=== PATIENT | male | born 1955 | race Caucasian/White ===

== ENCOUNTER 2023-07-30 19:51 | Observation (INO) | payer MEDICARE, MEDICAID, SELFPAY ==
[2023-07-30] VITALS (8 sets, daily range): BP systolic 170–190; BP diastolic 98–116; PULSE 92–109; RESP 14–23; TEMP 36.8–36.9; O2SAT 96–98
--- NOTE | 2023-07-30 20:07 | EKG12_ITS ---
Test Reason : CP Blood Pressure : / mmHG Vent. Rate : 118 BPM Atrial Rate : 118 BPM P-R Int : 138 ms QRS Dur : 090 ms QT Int : 324 ms P-R-T Axes : 048 063 084 degrees QTc Int : 454 ms Sinus tachycardia Nonspecific ST abnormality Abnormal ECG Confirmed by AZAR FROST, MOI ([id number]), publishing editor MATTHEW ESTRADA ([id number]) on 08/04/2023 11:33:20 AM Referred By: Robert Delong Confirmed By:MAISHA ASKEW MD
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
[2023-07-30] MEDS: Aspirin 81 MG TAB.CHEW 324 MG PO (20:18)
[2023-07-30 20:35] LABS: Absolute Lymphocyte Count 1.02 X10^3/uL (0.83-4.51); Absolute Neutrophil Count 2.1 X10^3/uL (2.0-7.7); Basophil# 0.03 X10^3/uL; Basophil% 0.8 % (0-1); Eosinophil# 0.11 X10^3/uL; Eosinophils% 2.8 % (0-5); Hematocrit 37.2 % (40-54); Hemoglobin 12.7 g/dL (13.0-16.5); Lymphocyte # 1.02 X10^3/ul (0.83-4.51); Lymphocyte % 26.4 % (19-41); Mean Corp Hgb Conc 34.1 g/dL (32-36); Mean Corpuscular Hgb 30.4 pg (27.0-32.0); Mean Platelet Vol. 9.8 fl (6.2-12.0); Monocyte# 0.61 X10^3/uL; Monocyte% 15.8 % (0-10); NRBC Flagged by Analyzer 0 % (0-5); Neutrophil # 2.08 X10^3/uL (2.7-7.7); Neutrophil % 53.9 % (47-70); Platelet Count 142 K/mm3 (150-450); RBC Distribution Width CV 12.9 % (11.6-14.6); RBC Distribution Width SD 41.8 fl (35.1-43.9); Red Blood Count 4.18 M/mm3 (4.6-6.2); White Blood Count 3.9 K/mm3 (4.4-11.0)
[2023-07-30] MEDS: 0.9% Normal Saline (1000mL) 1,000 ML 150 ML IV (20:35)
--- NOTE | 2023-07-30 20:40 | RAD_ITS ---
STUDY: X-RAY CHEST REASON FOR EXAM: Male, 68 years old. Chest pain TECHNIQUE: AP portable view of the chest. COMPARISON: None. FINDINGS: The lungs are clear and expanded. There is no demonstrated pleural abnormality. Sternal cerclage wires are present from a prior sternotomy. Normal mediastinum and don. Normal visualized pulmonary arteries. There is atherosclerotic calcification of the aortic arch with tortuosity. Normal visualized thoracic spine. There is healed left clavicle fracture. There is no demonstrated abnormality of the visualized soft tissue structures of the upper abdomen. RAD/Chest 1 View (Portable) IMPRESSION: Degenerative and postoperative changes, as described above. No demonstrated acute cardiopulmonary process. Electronically Signed: Sal Orellana MD at 21:58 EDT ,
[2023-07-30 20:54] LABS: Anion Gap 3 (5-15); BUN 19 mg/dL (7-18); BUN/Creat Ratio 17.4 RATIO (10-20); Calcium,Total 9.3 mg/dL (8.5-10.1); Chloride 109 mmol/L (98-107); Creatinine, Serum 1.09 mg/dL (0.70-1.30); EST Glomerular Filtration Rate 72 mL/min (>60); Est Glom Filt Rate - Afr Amer 87 mL/min (>60); Glucose 143 mg/dL (74-106); Potassium 3.9 mmol/L (3.5-5.1); Sodium Level 141 mmol/L (136-145); Troponin-I HS (w/2H Reflex) 29 pg/mL (3.0-78.0)
[2023-07-30 21:12] LABS: Bedside Glucose 122 mg/dL (74-106)
[2023-07-30 22:32] LABS: Reflex Troponin-HS? (from REC) Y
[2023-07-30 23:08] LABS: Troponin-I HS 97 pg/mL (3.0-78.0)
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
[2023-07-30] MEDS: Metoprolol Tartrate 5 MG/5 ML Vial IV (23:36)
[2023-07-30] MEDS: Nitroglycerin Oint 1 INCH PACKET TD (23:39)
[2023-07-30 23:56] LABS: Thyroid Stim Hormone (TSH) 1.65 uIU/mL (0.358-3.74)
[2023-07-31] VITALS (11 sets, daily range): BP systolic 168–212; BP diastolic 100–124; PULSE 83–100; RESP 16–20; TEMP 36.6–36.8; O2SAT 92–98; BMI 23.4
[2023-07-31] MEDS: Metoprolol Tartrate 5 MG/5 ML Vial IV (00:04)
[2023-07-31] MEDS: Enoxaparin 60 MG/0.6 ML Syringe SC (00:07)
--- NOTE | 2023-07-31 00:51 | ECHOD_ITS ---
Reason For Study: S/P CABG Procedure This was a 2D Doppler, Color Flow transthoracic echocardiogram. Exam performed portable in patient room. Left Ventricle Normal LV size. Concentric left ventricular hypertrophy. The estimated ejection fraction is 55 %. Diastolic function is indeterminate. No regional wall motion abnormalities noted. Right Ventricle Normal RV size. Normal systolic function. Atria Normal left atrium. Normal right atrium. No doppler evidence for ASD. Mitral Valve There is no mitral valve stenosis. Trivial mitral valve insufficiency. Tricuspid Valve There is no tricuspid stenosis. Trivial tricuspid valve insufficiency. Pulmonary artery systolic pressure is 25 mmHg. Aortic Valve Trisinus/trileaflet aortic valve. There is no aortic stenosis. No aortic valve insufficiency. Pulmonic Valve There is no pulmonic valvular stenosis. No pulmonic valve insufficiency. Great Vessels Normal aortic root. Pericardium/Pleural No pericardial effusion. MMode/2D Measurements & Calculations LVIDd: 3.9 cm IVSd: 1.8 cm Ao root diam: 3.5 cm LVIDs: 2.8 cm LVPWd: 1.5 cm RVDd: 3.3 cm FS: 27.6 % LAV(MOD-bp): 54.1 ml EDV(MOD-sp4): 108.7 ml EDV(MOD-sp2): 101.7 ml LAV(MOD-bp) Indexed: 30.7 ml/m2 ESV(MOD-sp4): 50.5 ml ESV(MOD-sp2): 40.3 ml LAV(MOD-sp2): 64.4 ml EF(MOD-sp4): 53.5 % EF(MOD-sp2): 60.3 % LAV(MOD-sp4): 41.1 ml SV(MOD-sp4): 58.2 ml SV(MOD-sp2): 61.4 ml LA A4 area: 15.8 cm2 LA dimension(2D): 4.4 cm RA A4 area: 16.6 cm2 Time Measurements MV dec time: 0.20 sec Doppler Measurements & Calculations MV E max mukesh: 84.4 cm/sec Lat Peak E' Mukesh: 7.2 cm/sec Med Peak E' Mukesh: 4.5 cm/sec MV A max mukesh: 101.0 cm/sec E/E' lat: 11.8 E/E' med: 18.7 MV E/A: 0.84 Ao V2 max: 123.5 cm/sec LV V1 max: 119.6 cm/sec MR max mukesh: 563.7 cm/sec Ao max P.1 mmHg LV V1 max P.7 mmHg MR max P.1 mmHg Ao V2 mean: 86.3 cm/sec LV V1 mean P.2 mmHg MR mean mukesh: 447.7 cm/sec Ao mean P.4 mmHg LV V1 mean: 82.9 cm/sec MR mean P.8 mmHg Ao V2 VTI: 24.4 cm LV V1 VTI: 23.1 cm MR VTI: 199.0 cm AV (velocity ratio): 0.95 PA V2 max: 89.2 cm/sec TR max mukesh: 244.5 cm/sec PA V2 mean: 66.1 cm/sec TR max P.9 mmHg ECHO/Echo Complete Interpretation Summary The estimated ejection fraction is 55 %. Diastolic function is indeterminate. Trivial mitral valve insufficiency. Ordering Physician: Robert Delong Referring Physician: OTD Performed By: Morenita Barboza, HILARY, RVT
--- NOTE | 2023-07-31 01:15 | EKG12_ITS ---
Test Reason : CP ADMIT Blood Pressure : / mmHG Vent. Rate : 095 BPM Atrial Rate : 095 BPM P-R Int : 154 ms QRS Dur : 108 ms QT Int : 368 ms P-R-T Axes : 063 085 091 degrees QTc Int : 462 ms Normal sinus rhythm Minimal voltage criteria for LVH, may be normal variant ( Maged product ) Nonspecific ST abnormality Abnormal ECG When compared with ECG of 30-JUL-2023 19:52, MANUAL COMPARISON REQUIRED, DATA IS UNCONFIRMED Confirmed by JUANITA FROST, DAVON ([id number]), make up editor MATTHEW ESTRADA ([id number]) on 08/19/2023 1:44:12 PM Referred By: Robert Delong Confirmed By:DAVON GRANT MD
[2023-07-31 01:19] LABS: Cholesterol 176 mg/dL (200); High Density Lipoprotein 47 mg/dL; Triglycerides 252 mg/dL; Very Low Density Lipoprotein 50 mg/dL (5-40)
[2023-07-31] MEDS: Metoprolol Tartrate 25 MG Tablet PO ×2 (01:42→06:31)
[2023-07-31 02:58] LABS: International Normalized Ratio 1.1
[2023-07-31 02:59] LABS: Partial Thromboplast Time 33.2 Seconds (24.1-36.2)
[2023-07-31] MEDS: Heparin Injection (Vial) 5,000 UNIT/ML VIAL 4500 UNIT IV (03:12)
[2023-07-31] MEDS: HEPARIN/D5w 25,000 UNITS 25,000 UNITS/250 ML IV.SOLN. 10 UNITS CONT INF (03:13)
[2023-07-31] MEDS: Acetaminophen 325 MG Tablet 650 MG PO (05:40)
[2023-07-31] MEDS: 0.9% Normal Saline (1000mL) 1,000 ML 150 ML IV (06:30)
[2023-07-31] MEDS: Lisinopril 20 MG Tablet PO (06:31)
[2023-07-31] MEDS: Aspirin 81 MG TAB.CHEW PO (06:31)
[2023-07-31] MEDS: Clopidogrel Bisulfate 75 MG Tablet PO (06:37)
[2023-07-31 07:13] LABS: Bedside Glucose 103 mg/dL (74-106)
[2023-07-31] MEDS: Spironolactone 25 MG Tablet PO (08:36)
[2023-07-31 09:44] LABS: Partial Thromboplast Time 94.2 Seconds (24.1-36.2)
[2023-07-31] MEDS: Insulin Glargine-YFGN 100 UNIT/ML Pen 12 UNIT SC (12:00)
[2023-07-31 12:17] LABS: Troponin-I HS 214 pg/mL (3.0-78.0)
--- NOTE | 2023-07-31 12:51 | CHAPLAIN ---
Type of Pastoral Visit _x__ Initial Visit ___ Follow-up Visit ___ On-call Visit ___ General Patient Visit ___ Spiritual Assessment ___ Family Conference ___ Bereavement ___ Rapid Response ___ Code Blue ___ Other (describe below) Pastoral Care Referral From _x__ Patient ___ Family ___ Nurse ___ Physician ___ Winch Truck Operator ___ Senior Environmental Consultant ___ Other (describe below) Sacrament/Intervention _x__ Active listening ___ Anointing ___ Hinduism ___ Bereavement ___ Communion ___ Umm exploration ___ ___ Life review ___ Prayer ___ Reconciliation ___ Sacrament of Sick _x__ Supportive presence ___ Wedding ___ Other (describe below) Pastoral Comments patient is eating lunch but is very welcoming and complimentary about his care; pt is from [place] and is planning to return there tomorrow if discharged today; pt states that he just wanted to welcome the plate printer but had no concerns or particular needs
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
[2023-07-31 13:38] LABS: Troponin-I HS 204 pg/mL (3.0-78.0)
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
[2023-07-31 14:43] LABS: Bedside Glucose 105 mg/dL (74-106)
--- NOTE | 2023-07-31 15:13 | PHA.DC.MC.R ---
Pharmacy [facility] has performed discharge medication reconciliation and counseling for this patient. The patient's discharge medication list was reviewed for discrepancies and discrepancies were resolved. The patient was counseled on the following discharge medications and changes in medications for homegoing were reviewed. The Reason for Use, instructions for use, and potential side effects were reviewed for all new medications. The patient's questions regarding all of their medications were answered. 1. Carvedilol 6.25 mg PO BID The patient was able to verbally demonstrate an understanding of their discharge medications. Medications at Discharge Home Medications aspirin 81 mg capsule 81 mg PO DAILY 07/30/23 clopidogrel 75 mg tablet 75 mg PO DAILY 07/30/23 dulaglutide 3 mg/0.5 mL subcutaneous pen injector (Trulicity) 3 mg subcut QWEEK 07/30/23 insulin glargine 100 unit/mL (3 mL) subcutaneous pen (Lantus Solostar U-100 Insulin) 12 unit subcut DAILY 07/30/23 lisinopril 40 mg tablet 40 mg PO DAILY 07/30/23 nitroglycerin 0.4 mg sublingual tablet 0.4 mg sublingual Q5M PRN chest pain 07/30/23 spironolactone 25 mg tablet 25 mg PO DAILY 07/30/23 tamsulosin 0.4 mg capsule 0.4 mg PO Q24H 07/30/23 carvedilol 6.25 mg tablet 6.25 mg PO BID #60 tabs 07/31/23
== END 2023-07-31 14:34 | disposition home or self-care (01) ==
LOC: ED 23:19 → PCU 23:34
PROVIDERS: Specialist; Admitting Provider Hospitalist; Emergency Provider Emergency Medicine; Referring Provider Hospitalist; Visit Provider Student in an Organized Health Care Education/Training Program
DX: I21.4 Non-ST elevation (NSTEMI) myocardial infarction (principal); Z79.4 Long term (current) use of insulin; E11.9 Type 2 diabetes mellitus without complications; I10 Essential (primary) hypertension; I25.10 Atherosclerotic heart disease of native coronary artery without angina pectoris; Z86.16 Personal history of COVID-19; Z87.891 Personal history of nicotine dependence; Z95.1 Presence of aortocoronary bypass graft; N40.0 Benign prostatic hyperplasia without lower urinary tract symptoms; Z79.899 Other long term (current) drug therapy; Z79.02 Long term (current) use of antithrombotics/antiplatelets
CPT/HCPCS: 36415; 71045; 80048; 80061; 82962; 83036; 84443; 84484; 85025; 85610; 85730; 93005; 93306; 96361; 96365; 96366; 96372; 96375; 99221; 99285; J7030; A4216; G0378